=== PATIENT | male | born 1985 | race Caucasian/White ===

== ENCOUNTER 2017-11-03 20:44 | Inpatient (IN) | payer MEDICAID ==
[~2017-11-03] VITALS: Ht 180.3 cm; Wt 87.1 kg
[2017-11-03 20:51] VITALS: BP 128/86
--- NOTE | 2017-11-03 21:01 | NUR ---
BIBA BLS TO ER BED 7
--- NOTE | 2017-11-03 21:01 | NUR ---
32/M BIBA FOR INTENTIONS TO HURT HIMSELF TODAY. PT STATES " I WANT TO STICK SOMETHING IN MY PENIS". PMH: SCHIZOPHRENIA
--- NOTE | 2017-11-03 21:01 | NUR ---
BELONGINGS SENT TO SECURITY
[2017-11-03] MEDS ORDERED: LORazepam 1 MG TAB PO ONE (21:45)
--- NOTE | 2017-11-03 22:01 | NUR ---
PT MOVED TO BED 6
[2017-11-03 22:15] LABS: BASOPHILS % (AUTO) 0.4 % (0.0-2.0); EOSINOPHILS % (AUTO) 0.5 % (0.0-4.0); HEMATOCRIT 43.3 % (36-52); HEMOGLOBIN 15.1 g/dL (12.0-18.0); LYMPHOCYTES # (AUTO) 1.6 K/uL (2.0-11.5); LYMPHOCYTES % (AUTO) 17.2 % (20.5-51.1); MEAN CORPUSCULAR HEMOGLOBIN 29 pg (27-31); MEAN CORPUSCULAR HGB CONC 35 g/dL (33-37); MEAN CORPUSCULAR VOLUME 82.8 fL (80-94); MONOCYTES % (AUTO) 11.2 % (1.7-9.3); NEUTROPHILS # (AUTO) 6.4 K/uL (1.8-7.7); NEUTROPHILS % (AUTO) 70.7 % (42.2-75.2); PLATELET COUNT (AUTO) 254 K/uL (140-450); RED BLOOD CELL COUNT(AUTO) 5.22 MIL/uL (4.20-6.10); RED CELL DISTRIBUTION WIDTH 13.4 % (11.6-13.7)
[2017-11-03 22:23] LABS: BARBITURATE, URINE NEG. ng/ml (NEG <=200); BENZODIAZEPINE, URINE NEG. ng/mL (NEG <=200); CANNABINOID, URINE NEG. ng/mL (NEG <=50); COCAINE, URINE NEG. ng/mL (NEG <=300); OPIATE, URINE NEG. ng/mL (NEG <=2000); PHENCYCLIDINE SCREEN,URINE NEG. ng/mL (NEG <=25)
[2017-11-03 22:27] LABS: ANION GAP 12.4 (8-16); ASPARTATE AMINOTRANSFERASE 26 U/L (15-37); CARBON DIOXIDE 30.4 mmol/L (21-32); CHLORIDE 100 mmol/L (98-107); CREATININE 0.8 mg/dL (0.7-1.3); GFR ARICAN-AMERICAN 144 mL/min (>90); GLUCOSE 102 mg/dL (74-106); POTASSIUM 3.8 mmol/L (3.5-5.1); SODIUM SERUM 139 mmol/L (136-145); TOTAL BILIRUBIN 0.2 mg/dL (0.0-1.0); UREA NITROGEN, BLOOD 11 mg/dL (7-18)
[2017-11-03 22:28] LABS: ACETAMINOPHEN < 0.5 ug/ml (10-30); SALICYLATE < 2.8 mg/dL (2.8-20.0)
--- NOTE | 2017-11-03 23:00 | NUR ---
Patient appears to be resting comfortably in bed. Vital Signs within normal limits. Respirations even and unlabored. sitter at bedside
--- NOTE | 2017-11-04 | NUR ---
Patient appears to be resting comfortably in bed. Vital Signs within normal limits. Respirations even and unlabored. sitter at bedside
--- NOTE | 2017-11-04 01:00 | NUR ---
Patient appears to be resting comfortably in bed. Vital Signs within normal limits. Respirations even and unlabored. sitter at bedside
--- NOTE | 2017-11-04 02:00 | NUR ---
SITTER AT BEDSIDE. PT RESTING COMFORTABLY ON BED.
--- NOTE | 2017-11-04 04:24 | NUR ---
SITTER AT BEDSIDE. PT RESTING. NAD NOTED.
--- NOTE | 2017-11-04 05:46 | NUR ---
Packet Faxed to the following designated area. [facility] - [facility] intake [facility] - [facility] intake [facility] - [place] intake [place] [facility] - [place] intake [facility]- [facility] intake At this time there are no vacancy, will notify ER if placement is found, will endosed to AM shift.
--- NOTE | 2017-11-04 05:48 | NUR ---
Patient will be admitted to care of DR. EILEEN Doty. Admited to MS. Will go to room 111 A. Belongings list completed.AND GIVEN TO SECURITY DEPARTMENT.
--- NOTE | 2017-11-04 06:00 | NUR ---
Patient appears to be resting comfortably in bed. Vital Signs within normal limits. Respirations even and unlabored, WITH SITTER (EMT) AT BEDSIDE
[2017-11-04 07:00] VITALS: BP 110/73
--- NOTE | 2017-11-04 07:00 | NUR ---
PATIENT ARRIVED ON [facility] UNIT VIA WHEELCHAIR, ABLE TO AMBULATE WITH STEADY GAIT TO [facility] BED. NO DISTRESS NOTED. DENIES ANY PAIN. RESPIRATIONS EVEN, UNLABORED, ON ROOM AIR. AAOX4, CALM, COOPERATIVE, SKIN COLOR APPROPRIATE TO ETHNICITY, WARM TO TOUCH. SKIN INTACT. NO IV ACCESS PRESENT. LUNGS CTA ON ALL LOBES. ABDOMEN SOFT, NON-DISTENDED. ORIENTED PATIENT TO ROOM. REVIEWED PLAN OF CARE WITH PATIENT. PATIENT VERBALIZED UNDERSTANDING. SAFETY MEASURES IN PLACE, 1:1 SITTER AT BEDSIDE. WILL CONTINUE TO MONITOR. Addendum: 11/05/17 at 1552 by Simon Toledo RN SITTER AT BEDSIDE, NOT 1:1 SITTER
--- NOTE | 2017-11-04 09:12 | NUR ---
PATIENT HAS BEEN SCREENED AND CATEGORIZED LOW NUTRITION RISK. PATIENT WILL BE SEEN WITHIN 7 DAYS OF ADMISSION. 11/10/[address]
--- NOTE | 2017-11-04 09:30 | NUR ---
PATIENT LYING DOWN IN BED SLEEPING, AROUSABLE BY VOICE. NO DISTRESS NOTED. DENIES ANY PAIN. REPORTS HEARING AUDITORY HALLUCINATIONS THAT TELLS HIM TO SHOVE OBJECTS DOWN HIS PENIS. SAFETY MEASURES IN PLACE, 1:1 SITTER AT BEDSIDE. WILL CONTINUE TO MONITOR. Addendum: 11/05/17 at 1553 by Simon Toledo RN SITTER AT BEDSIDE, NOT 1:1 SITTER
--- NOTE | 2017-11-04 10:17 | NUR ---
[facility] IS ASSISTING WITH PLACEMENT. NO ONE HAS CONTACTED US REGARDING POSSIBLE BED OPENINGS. WE WILL CONTINUE TO MAKE CALLS TO ASSIST WITH PLACEMENT.
--- NOTE | 2017-11-04 11:14 | NUR ---
PATIENT SLEEPING, AROUSABLE BY VOICE. NO DISTRESS NOTED. CONDITION UNCHANGED. 1:1 SITTER AT BEDSIDE. WILL CONTINUE TO MONITOR. Addendum: 11/05/17 at 1553 by Simon Toledo RN SITTER AT BEDSIDE, NOT 1:1 SITTER
--- NOTE | 2017-11-04 12:00 | NUR ---
DR. DIEZ AT BEDSIDE REVIEWING PLAN OF CARE WITH PATIENT. WILL CONTINUE TO MONITOR.
--- NOTE | 2017-11-04 12:13 | NUR ---
[facility], NO BEDS AVAILABLE PER DAVID. [facility], NO BEDS AVAILABLE PER KIMBER. [facility], NO BEDS PER RL- NO WAITLIST AND THEIR ED IS SATURATED. [facility], NO ANSWER AND FAX IS NOT WORKING. [facility], NO BEDS PER RAY. NO WL AT THIS TIME. [facility], LINE BUSY, SEVERAL ATTEMPTS MADE.
[2017-11-04] MEDS ORDERED: LORazepam 2 MG/ML VIAL IM/IVP PRN (12:20)
[2017-11-04 12:48] LABS: APPEARANCE,URINE HAZY (CLEAR); BILIRUBIN,URINE NEGATIVE (NEGATIVE); BLOOD, URINE TRACE-L (NEGATIVE); COLOR,URINE YELLOW (YELLOW); LEUKOCYTE ESTERASE ,URINE TRACE (NEGATIVE); NITRITE, URINE NEGATIVE (NEGATIVE); PH,URINE 6.5 (5.0-9.0); UGLUCOSE NEGATIVE (NEGATIVE)
[2017-11-04 13:02] LABS: RBC,URINE 0-5 (RARE) /HPF (0-5)
--- NOTE | 2017-11-04 13:49 | NUR ---
1100 MET WITH PT AT BEDSIDE AND PROVIDED HIM WITH RESOURCE LIST FOR MENTAL HEALTH AND FOR HOMELESS RESOURCES. PT STATED THAT SOMETIMES HE'S HOMELESS AND SOMETIMES HE'S NOT BUT DID NOT ELABORATE WHAT HE MEANT. STATED HE'S HAD FOLLOW UP WITH PSYCH IN THE PAST BUT COULDN'T NAME WHO OR WHERE.
[2017-11-04 14:51] LABS: CHOL/HDL RATIO 3.2 (1-4.5); MAGNESIUM 1.8 mg/dL (1.8-2.4); PHOSPHORUS 3.9 mg/dL (2.5-4.9); THYROID STIMULATING HORMONE 3.62 uIU/mL (0.34-3.74)
--- NOTE | 2017-11-04 14:52 | NUR ---
MONITORED PATIENT WHILE TAKING A SHOWER. PATIENT BACK TO BED SAFELY AFTER SHOWER. CONDITION UNCHANGED. SAFETY MEASURES IN PLACE, 1:1 SITTER AT BEDSIDE. WILL CONTINUE TO MONITOR. Addendum: 11/05/17 at 1554 by Simon Toledo RN SITTER AT BEDSIDE, NOT 1:1 SITTER
[2017-11-04 16:00] VITALS: BP 108/76
--- NOTE | 2017-11-04 16:27 | NUR ---
DR. WARNER AT BEDSIDE EVALUATING PATIENT. PER DR. WARNER 8625 HOLD WILL REMAIN IN PLACE. SAFETY MEASURES IN PLACE, 1:1 SITTER AT BEDSIDE. WILL CONTINUE TO MONITOR. Addendum: 11/05/17 at 1554 by Simon Toledo RN SITTER AT BEDSIDE, NOT 1:1 SITTER
[2017-11-04] MEDS: LORazepam 1 MG TAB PO PRN (16:35)
--- NOTE | 2017-11-04 16:37 | NUR ---
PATIENT FEELING ANXIOUS, ATIVAN GIVEN PER MD ORDERS. WILL CONTINUE TO MONITOR.
--- NOTE | 2017-11-04 18:35 | NUR ---
PATIENT AWAKE, SITTING IN BED EATING DINNER TRAY. CONDITION UNCHANGED. SAFETY MEASURES IN PLACE, 1:1 SITTER AT BEDSIDE. WILL CONTINUE TO MONITOR. Addendum: 11/05/17 at 1554 by Simon Toledo RN SITTER AT BEDSIDE, NOT 1:1 SITTER
--- NOTE | 2017-11-04 19:20 | NUR ---
REPORT RECEIVED FROM AM NURSE AT BEDSIDE. PT IN STABLE CONDITION. AAOX4. BOARD UPDATED. 1:1 SITTER AT BEDSIDE. NO IV ACCESS. SKIN WARM, DRY, AND INTACT WITH NO OPEN WOUNDS. NO COMPLAINTS OF PAIN. BED LOCKED IN LOW POSITION. CALL ROMO WITHIN REACH. SAFETY MEASURES IN PLACE. WILL CONTINUE TO MONITOR.
--- NOTE | 2017-11-04 19:20 | NUR ---
GAVE REPORT TO LIBERAL ARTS DEAN NURSE FOR CONTINUITY OF CARE. PATIENT IN STABLE CONDITION.
--- NOTE | 2017-11-04 21:30 | NUR ---
PT SLEEPING COMFORTABLY WITH NO S/S OF DISTRESS. RESPIRATIONS EVEN, UNLABORED, AND WNL. NO COMPLAINTS OF PAIN STATED. WILL CONTINUE TO MONITOR.
[2017-11-05] VITALS: BP 106/58
--- NOTE | 2017-11-05 | NUR ---
PT SLEEPING COMFORTABLY WITH NO S/S OF DISTRESS. NO COMPLAINTS OF PAIN NOTED. WILL CONTINUE TO MONITOR.
--- NOTE | 2017-11-05 03:15 | NUR ---
PT SLEEPING COMFORTABLY IN BED. NO S/S OF DISTRESS. RESPIRATIONS EVEN, UNLABORED, AND WNL. NO COMPLAINTS OF PAIN NOTED. WILL CONTINUE TO MONITOR.
--- NOTE | 2017-11-05 05:10 | NUR ---
No beds available at the following facilities for psych placement: [facility], s/w Luz. [facility], s/w Julieth. [facility], s/w Philip. [facility], s/w Cameron. [facility], s/w Sayra. [facility], s/w Elle. [facility], s/w Ar.
--- NOTE | 2017-11-05 07:00 | NUR ---
REPORT GIVEN TO AM NURSE AT BEDSIDE. PT IN STABLE CONDITION.
--- NOTE | 2017-11-05 07:01 | NUR ---
RECEIVED REPORT FROM TEACHER OF GIFTED STUDENTS NURSE. PATIENT LYING DOWN IN BED SLEEPING, AROUSABLE BY VOICE. NO DISTRESS NOTED. DENIES ANY PAIN. AAOX3, CALM, COOPERATIVE, SKIN COLOR APPROPRIATE TO ETHNICITY, WARM TO TOUCH. SKIN INTACT. RESPIRATIONS EVEN, UNLABORED, ON ROOM AIR. LUNGS CTA ON ALL LOBES. ABDOMEN SOFT, NON-DISTENDED. SAFETY MEASURES IN PLACE, 1:1 SITTER AT BEDSIDE. WILL CONTINUE TO MONITOR. Addendum: 11/05/17 at 1554 by Simon Toledo RN SITTER AT BEDSIDE, NOT 1:1 SITTER
[2017-11-05 08:00] VITALS: BP 116/79
[2017-11-05] MEDS ORDERED: QUEtiapine FUMARATE 25 MG TAB PO SCH (09:00)
--- NOTE | 2017-11-05 09:07 | NUR ---
PATIENT PACING AROUND ROOM, REPORTS CONTINUING TO HEAR VOICES THAT TELL HIM TO HARM SELF. SCHEDULED MEDICATIONS DUE GIVEN. SAFETY MEASURES IN PLACE, 1:1 SITTER AT BEDSIDE. WILL CONTINUE TO MONITOR. Addendum: 11/05/17 at 1554 by Simon Toledo RN SITTER AT BEDSIDE, NOT 1:1 SITTER
--- NOTE | 2017-11-05 09:54 | NUR ---
THE [facility]IORAL [facility] CALL CENTER IS AWARE OF PATIENT AND ASSISTING WITH PLACEMENT.
--- NOTE | 2017-11-05 11:48 | NUR ---
PATIENT LYING DOWN IN BED SLEEPING, AROUSABLE BY VOICE. NO DISTRESS NOTED. DENIES ANY PAIN. CONDITION UNCHANGED. SAFETY MEASURES IN PLACE, 1:1 SITTER AT BEDSIDE. WILL CONTINUE TO MONITOR. Addendum: 11/05/17 at 1554 by Simon Toledo RN SITTER AT BEDSIDE, NOT 1:1 SITTER
[2017-11-05] MEDS ORDERED: LORA-476 PO (12:36)
[2017-11-05] MEDS ORDERED: QUET25TA PO (12:36)
--- NOTE | 2017-11-05 13:30 | NUR ---
PATIENT COMPLAINING OF "THE MEDICATION I'M TAKING IS MAKING ME HUNGRY." NOTIFIED MD AND MD TO SEE PATIENT. 1:1 SITTER AT BEDSIDE. WILL CONTINUE TO MONITOR. Addendum: 11/05/17 at 1554 by Simon Toledo RN SITTER AT BEDSIDE, NOT 1:1 ALEAH
--- NOTE | 2017-11-05 14:12 | NUR ---
PATIENT LYING DOWN IN BED SLEEPING, AROUSBLE BY VOICE. NO DISTRES NOTED. CONDITION UNCHANGED. 1:1 SITTER AT BEDSIDE. WILL CONTINUE TO MONITOR. Addendum: 11/05/17 at 1554 by Simon Toledo RN SITTER AT BEDSIDE, NOT 1:1 SITTER
--- NOTE | 2017-11-05 14:20 | NUR ---
[facility]: [facility]: NO BEDS PER SUMA [facility]: PER KEVIN RAY TO RESEND PACKET [facility]: NO BEDS PER GEMINI, SENT PACKET FOR [facility]. [facility]: NO BEDS PER AMEE.
--- NOTE | 2017-11-05 14:33 | NUR ---
[facility]: POSSIBLE BEDS PER ZEN, PACKET HAS BEEN SENT
[2017-11-05 16:00] VITALS: BP 112/64
--- NOTE | 2017-11-05 16:40 | NUR ---
PATIENT PACING AROUND IN ROOM. CONDITION UNCHANGED. SAFETY MEASURES IN PLACE, SITTER AT BEDSIDE. WILL CONTINUE TO MONITOR.
--- NOTE | 2017-11-05 18:10 | NUR ---
PATIENT AGITATED MOOD DUE TO MOVING TO ROOM 110B. REFUSES DINNER SAYING "IF I HAVE TO BE IN THIS ROOM, I'M NOT GOING TO EAT OR DRINK." SITTER AT BEDSIDE. WILL CONTINUE TO MONITOR.
--- NOTE | 2017-11-05 18:25 | NUR ---
PATIENT PACING AROUND ROOM, AGITATED MOOD D/T MOVING ROOMS. ATIVAN OFFERED, BUT PATIENT DECLINED. SAYS "I WILL NOT EAT OR DRINK ANYTHING, UNTIL I MOVE BACK TO MY ORIGINAL ROOM." WILL NOTIFY MD. SAFETY MEASURES IN PLACE, SITTER AT BEDSIDE. WILL CONTINUE TO MONITOR.
--- NOTE | 2017-11-05 19:21 | NUR ---
GAVE REPORT TO CAUSTIC STRENGTH INSPECTOR NURSE FOR CONTINUITY OF CARE. PATIENT IN STABLE CONDITION.
--- NOTE | 2017-11-05 19:22 | NUR ---
RECEIVED BEDSIDE REPORT FROM DAY SHIFT NURSE CAROLINE RN, PT STABLE, NO DISTRESS NOTED, PT HAS NO IV ACCESS, PT ON ROOM AIR, NO SOB, SITTER AT BEDSIDE, INITIAL ASSESSMENT DONE, ALL SAFETY PRECAUTION MET, WILL CONTINUE TO MONITOR.
--- NOTE | 2017-11-05 20:34 | NUR ---
ATTEMPT TO ADMINISTER MEDICATION TO PT, PT REFUSED, WOULD NOT ANSWER NURSE, STAYING ASLEEP, NO DISTRESS NOTED, SITTER AT BEDSIDE, WILL CONTINUE TO MONITOR.
[2017-11-05] MEDS: QUEtiapine FUMARATE 25 MG TAB PO SCH (20:55)
--- NOTE | 2017-11-05 23:40 | NUR ---
CHECKED ON PT, PT SLEEPING, ASKED PT IF IT IS OK FOR NURSE TO TAKE BP, PT DID NOT RESPOND AND CONTINUES TO SLEEP, NURSE WAS NOT ABLE TO GET ANY VERBAL RESPONSE FROM PT, PT SLEEPING, NO DISTRESS NOTED, LEFT RESTING, CALL LIGHT WITHIN REACH, WILL CONTINUE TO MONITOR.
--- NOTE | 2017-11-06 02:21 | NUR ---
CHECKED ON PT, PT SLEEPING, NO DISTRESS NOTED, SITTER AT BEDSIDE, WILL CONTINUE TO MONITOR.
--- NOTE | 2017-11-06 03:10 | NUR ---
No beds at the following facilities: [facility], s/w Angelo. [facility], s/w Randy. [facility], s/w Debbie. [facility], s/w Rodriguez. [facility], left a message to call me back. [place] [facility], s/w Gabrielle. [facility], s/w Su.
--- NOTE | 2017-11-06 04:59 | NUR ---
CHECKED ON PT, PT SLEEPING, NO DISTRESS NOTED, SITTER AT BEDSIDE, WILL CONTINUE TO MONITOR.
--- NOTE | 2017-11-06 07:04 | NUR ---
ENDORSED PT TO DAY SHIFT NURSE ALICIA ALEXANDER, PT IN STABLE CONDITION, NO DISTRESS NOTED. SITTER AT BEDSIDE
--- NOTE | 2017-11-06 07:04 | NUR ---
ASSUMED CONTINUITY OF CARE. NO SIGNS AND SYMPTOMS OF ACUTE DISTRESS NOTED. INITIAL ASSESSMENT DONE. CALM, QUIET AND COOPERATIVE BUT REFUSED IV INSERTION. NO SUICIDAL THOUGHTS OBSERVED. KEEP ENVIRONMENT SAFE. EXPLAINED DIAGNOSIS, PLAN OF CARE, PAIN MANAGEMENT TEACHING. VERBALIZED UNDERSTANDING. CLOSELY MONITORED 1:1 FOR SUICIDAL PREVENTION.
--- NOTE | 2017-11-06 07:27 | NUR ---
DR. ARELLANO AND RESIDENTS CAME AND SPOKE TO PT. AT BEDSIDE. PT. CALM AND COOPERATIVE.
[2017-11-06 08:00] VITALS: BP 128/76
--- NOTE | 2017-11-06 08:00 | NUR ---
Patient's Plan of Care was discussed and reviewed with BOOTH MANAGER: ALICIA, WILL CONTINUE WITH CURRENT PLAN OF CARE
--- NOTE | 2017-11-06 10:40 | NUR ---
[facility] aware patient is still in Unit. will continue to look for placement throughout shift. will contact unit when new information has been received.
--- NOTE | 2017-11-06 10:55 | NUR ---
WENT TO BATHROOM. TOLERATED WELL. NO C/O PAIN. CONTINUE MONITORING CLOSELY 1:1.
[2017-11-06 12:00] VITALS: BP 110/73
[2017-11-06] MEDS: LORazepam 1 MG TAB PO PRN (14:15)
--- NOTE | 2017-11-06 14:15 | NUR ---
ATIVAN 1MG GIVEN, BARCODE DOES NOT WORK, [id number]
--- NOTE | 2017-11-06 15:46 | NUR ---
RESTING ON BED, CALM, QUIET AND NO SUICIDAL THOUGHTS OBSERVED. KEEP FREE FROM INJURY.
--- NOTE | 2017-11-06 16:49 | NUR ---
No update from contacted facilities at this time. Called [facility] and s/w Liya, they have no beds at this time. Called [facility] and s/w Aarti they have no beds at this time and are still reviewing charts. Called [facility] and s/w Miguel, they have no beds at this time and are still reviewing charts. Called [facility] and s/w Kamala, No vacancies at this time. Called [facility] s/w Ara, No bed vacancies. [facility]w Hima, No beds available. Called [facility] and s/w Gabriel, No beds available today. Called [facility] and s/w Luisa, No bed vacancies tonight. Called [facility] and s/w Peggy, no Beds at this time. Called [facility] and s/w Stephanie, No beds available at this time. Called [facility] and s/w Anu, No vacancies at this time.
--- NOTE | 2017-11-06 19:05 | NUR ---
BEDSIDE REPORT GIVEN TO GRACIELA CASTANEDA. IN STABLE CONDITION.
--- NOTE | 2017-11-06 19:23 | NUR ---
RECEIVED BEDSIDE REPORT FROM DAY SHIFT NURSE ALICIA ALEXANDER, PT STABLE, NO DISTRESS NOTED, PT HAS NO IV ACCESS, ON ROOM AIR NO SOB, 1:1 SITTER AT BEDSIDE, INITIAL ASSESSMENT DONE, ALL SAFETY PRECAUTION MET, WILL CONTINUE TO MONITOR.
[2017-11-06] MEDS: QUEtiapine FUMARATE 25 MG TAB PO SCH (20:02)
--- NOTE | 2017-11-06 20:02 | NUR ---
DUE MEDICATION ADMINISTERED, PT TOLERATED WELL, NO DISTRESS NOTED, SITTER AT BEDSIDE, WILL CONTINUE TO MONITOR.
--- NOTE | 2017-11-06 22:10 | NUR ---
PT SLEEPING, NO DISTRESS NOTED, SITTER AT BEDSIDE, WILL CONTINUE TO MONITOR.
--- NOTE | 2017-11-06 23:26 | NUR ---
PT SLEEPING, NO DISTRESS NOTED, SITTER AT BEDSIDE, WILL CONTINUE TO MONITOR.
[2017-11-06 23:28] VITALS: BP 106/63
--- NOTE | 2017-11-07 02:08 | NUR ---
PT SLEEPING, NO DISTRESS NOTED, SITTER AT BEDSIDE, WILL CONTINUE TO MONITOR.
--- NOTE | 2017-11-07 05:05 | NUR ---
CHECKED ON PT, PT SLEEPING, NO DISTRESS NOTED, SITTER AT BEDSIDE, WILL CONTINUE TO MONITOR.
--- NOTE | 2017-11-07 07:10 | NUR ---
ASSUMED CONTINUITY OF CARE. NO SIGNS AND SYMPTOMS OF ACUTE DISTRESS NOTICED. REFUSED IV INSERTION. CALM, QUIET, AND COOPERATIVE. NO SUICIDAL THOUGHTS OBSERVED. KEEP SURROUNDINGS SAFE. CLOSELY MONITORED BY AXEL BULLARD 1:1 FOR SUICIDAL PREVENTION.
--- NOTE | 2017-11-07 07:12 | NUR ---
ENDORSED PT TO DAY SHIFT NURSE ALICIA ALEXANDER, PT STABLE, NO DISTRESS NOTED, SITTER AT BEDSIDE
[2017-11-07 08:00] VITALS: BP 139/85
--- NOTE | 2017-11-07 08:00 | NUR ---
Patient's Plan of Care was discussed and reviewed with NETWORKING ADMINISTRATOR: ALICIA, WILL CONTINUE WITH CURRENT PLAN OF CARE.
[2017-11-07 12:00] VITALS: BP 125/78
--- NOTE | 2017-11-07 12:00 | NUR ---
VITALS SIGNS STABLE. NO C/O PAIN. WILL MONITOR.
--- NOTE | 2017-11-07 15:25 | NUR ---
No update from contacted facilities at this time. Refaxed paperwork over to [facility] Called [facility] and s/w Obdulia, they have no beds at this time. Called [facility] and s/w Dario they have no beds at this time and are still reviewing charts. Called [facility] and s/w Savanah, they have no beds at this time and are still reviewing charts. Called [facility] and s/w Ade, No vacancies at this time. Called [facility] s/w Andressa, No bed vacancies. Called [facility] left message, No answer Called [facility] and s/w Gabriel, No beds available today. Called [facility] and s/w Patti, No bed vacancies tonight. Called [facility] and s/w Val, no Beds at this time. Called [facility] and s/w Phu, No beds available at this time. Called [facility] and s/w Alban, No vacancies at this time.
--- NOTE | 2017-11-07 15:26 | NUR ---
INFORMED DR. PUTON WHO WAS COVERING DR. MALLORY REGARDING PT. PSYCH RE-EVAL FOR 5150 HOLD RENEWAL.
--- NOTE | 2017-11-07 16:35 | NUR ---
DR. BENAVIDES CAME AND SPOKE TO PT. AT BEDSIDE REGARDING PSYCH RE-EVAL. PT. CALM AND COOPERATIVE.
--- NOTE | 2017-11-07 19:15 | NUR ---
BEDSIDE REPORT GIVEN TO MARILIN GAMA. PT. CALM AND QUIET RESTING ON BED. IN STABLE CONDITION.
--- NOTE | 2017-11-07 19:16 | NUR ---
RECD. RESTING IN BED, AWAKE, A/OX4. RESPIRATION EVEN AND UNLABORED. NO IV LINE, REFUSED IV INSERTION. DENIES HEARING VOICES BUT WHEN ASKED IF HE STILL HAS THOUGHTS OF HURTING HIMSELF. STATED "YES". PLAN OF CARE FOR THE SHIFT DISCUSSED. VERBALIZED UNDERSTANDING. DENIES PAIN 0/10. WILL CONTINUE TO MONITOR FOR SAFETY AND ANY SUICIDAL BEHAVIOR BEING THE NURSE/SITTER FOR THIS SHIFT.
--- NOTE | 2017-11-07 20:05 | NUR ---
REQUESTED FOR WATER WITH ICE. DRINKS AND THEN KEEP ON EATING ICE CHIPS.
[2017-11-07] MEDS: QUEtiapine FUMARATE 25 MG TAB PO SCH (21:01)
--- NOTE | 2017-11-07 21:05 | NUR ---
DUE PO MEDICATION FOR THE NIGHT GIVEN. COOPERATIVE.
[2017-11-08] VITALS: BP 105/65
--- NOTE | 2017-11-08 | NUR ---
SLEEPING COMFORTABLY IN BED.
--- NOTE | 2017-11-08 05:33 | NUR ---
STILL SLEEPING COMFORTABLY IN BED, WITH HEAD COVERED WITH TOWEL AND BOTH EARS.EARPLUGS AT THE BEDSIDE TABLE.
--- NOTE | 2017-11-08 06:35 | NUR ---
ABLE TO SLEEP WELL. NO SUICIDAL BEHAVIOR NOTED DURING SHIFT. CONDITION REMAIN STABLE. WILL ENDORSE TO AM NURSE FOR CONTINUITY OF CARE.
--- NOTE | 2017-11-08 07:10 | NUR ---
ENDORSED TO COTY THOMAS FOR CONTINUITY OF CARE.
--- NOTE | 2017-11-08 07:25 | NUR ---
RECEIVED BEDSIDE REPORT FROM WELDING MACHINE OPERATOR ARC NURSE MARILIN FOR CONTINUITY OF CARE. NO SIGNS AND SYMPTOMS OF ACUTE DISTRESS NOTICED. RESPIRATIONS EVEN AND UNLABORED. PT REFUSED IV INSERTION SO THUS NO IV ACCESS. PT SLEEPING IN BED, AROUSABLE BY VOICE. ROOM HAS BEEN CHECKED TO BE FREE OF POSSIBLE HARMFUL OBJECTS. CLOSELY MONITORED BY MYSELF SITTER 1:1 FOR SUICIDAL PREVENTION.
--- NOTE | 2017-11-08 07:45 | NUR ---
SET UP PATIENT'S BREAKFAST TRAY PER PT REQUEST. PT STATES HE DID NOT RECEIVE EVERYTHING HE ORDERED FOR BREAKFAST. CALLED [facility] PER PATIENT REQUEST. LEFT MESSAGE.
[2017-11-08 08:00] VITALS: BP 126/88
--- NOTE | 2017-11-08 09:30 | NUR ---
PATIENT DENIES HEARING VOICES BUT STATES CONSTANT DESIRE TO HARM HIMSELF. STATES THAT HE DOES NOT THINK THE "FEELING TO HARM MYSELF WILL EVER GO AWAY", BUT DOES NOT VOCALIZE SPECIFIC PLAN AT THIS TIME. PT CONVERSING APPROPRIATELY WITH ME AT THIS TIME. WILL CONTINUE TO CLOSELY MONITOR PATIENT.
--- NOTE | 2017-11-08 10:34 | NUR ---
NURSING SCHOOL STUDENT WHO IS ASSIGNED TO PATIENT TODAY IN ROOM TO SPEAK WITH PATIENT. PATIENT INTERACTING APPROPRIATELY WITH STUDENT. MOOD IS CALM AND COOPERATIVE. WILL CONTINUE TO MONITOR.
--- NOTE | 2017-11-08 11:59 | NUR ---
PT INQUIRING ABOUT LUNCH. INFORMED PATIENT THAT LUNCH WILL BE BROUGHT TO THE UNIT AROUND 12 NOON.
--- NOTE | 2017-11-08 12:45 | NUR ---
[facility] called saying they are reviewing the patients chart. will update when new information has been revealed. no update from any other contacted facility at this time.
--- NOTE | 2017-11-08 13:50 | NUR ---
PATIENT SHOWERED SELF. PATIENT WAS MONITORED THROUGHOUT. NOW BACK IN ROOM AND LYING IN BED. WILL CONTINUE TO MONITOR.
--- NOTE | 2017-11-08 14:24 | NUR ---
PT RESTING IN BED, AO X 4. NO COMPLAINTS OF PAIN OR DISCOMFORT. ALL SAFETY PRECAUTIONS IN PLACE, WILL CONTINUE TO MONITOR.
[2017-11-08] MEDS: LORazepam 1 MG TAB PO PRN (15:49)
--- NOTE | 2017-11-08 15:50 | NUR ---
ATIVAN PO ADMINISTERED FOR PATIENT REPORTS OF ANXIETY. PATIENT SEEN TO BE RESTLESS IN BED. WILL CONTINUE TO MONITOR.
[2017-11-08 16:00] VITALS: BP 115/70
--- NOTE | 2017-11-08 16:49 | NUR ---
PATIENT RESTING COMFORTABLY IN BED ONE HOUR AFTER ATIVAN PO ADMINISTRATION. NO RESTLESS SEEN. PT STATES ANXIETY IS LESSENED. WILL CONTINUE TO MONITOR.
--- NOTE | 2017-11-08 18:59 | NUR ---
No updates and No bed vacancies from contacted hospitals during shifts. will endorse to overnight caregiver to continue looking for placement.
--- NOTE | 2017-11-08 19:19 | NUR ---
ENDORSED PLAN OF CARE TO HOSIERY MENDER NURSE MARILIN AT BEDSIDE. PT IN STABLE CONDITION.
--- NOTE | 2017-11-08 19:20 | NUR ---
RECD. RESTING IN BED, AWAKE, A/OX4. RESPIRATION EVEN AND UNLABORED. WEARING MASK, STATED OTHER PATIENT STINKS BUT KNOWS REFUSING TO HAVE A BATH. WHEN INQUIRED IF HE IS HEARING VOICES, STATED NO BUT STILL WITH THOUGHTS OF HURTING HIMSELF. PLAN OF CARE FOR THE SHIFT DISCUSSED. VERBALIZED UNDERSTANDING. DENIES PAIN 0/10. WILL CONTINUE TO MONITOR AND ENSURE SAFETY BEING THE NURSE/SITTER FOR THIS SHIFT.
--- NOTE | 2017-11-08 20:00 | NUR ---
SLEEPING IN BED, NO MORE MASK.
[2017-11-08] MEDS: QUEtiapine FUMARATE 25 MG TAB PO SCH (21:09)
--- NOTE | 2017-11-08 21:09 | NUR ---
WAKEN UP, DUE PO NIGHT MEDICATION GIVEN.
[2017-11-09] VITALS: BP 106/72
--- NOTE | 2017-11-09 | NUR ---
SLEEPING COMFORTABLY IN BED.
--- NOTE | 2017-11-09 03:00 | NUR ---
WOKE UP AND WENT TO BR TO VOID, BACK TO BED AND SLEEP AGAIN.
--- NOTE | 2017-11-09 06:30 | NUR ---
STILL VERY SLEEPY, WHEN INQUIRED WHEN WAS HIS LAST BM, JUST TURNED BODY AWAY TO THE SIDE AND DID NOT ANSWER.
--- NOTE | 2017-11-09 07:05 | NUR ---
STILL SLEEPING IN BED. SAFETY MAINTAINED DURING SHIFT. ENDORSED TO COTY THOMAS FOR CONTINUITY OF CARE.
--- NOTE | 2017-11-09 07:25 | NUR ---
RECEIVED BEDSIDE REPORT FROM CHECKING DEPARTMENT SUPERVISOR NURSE MARILIN. PT SLEEPING IN BED, WITH BLANKET COVERING EYES. DOES NOT WANT TO INTERACT AT THIS TIME. HOWEVER DOES STATE THAT HE IS HEARING VOICES BUT THAT THEY ARE NOT GETTING WORSE. STATES THAT HE DOES HAVE THOUGHTS OF HURTING HIMSELF, BUT DOES NOT OFFER SPECIFIC PLAN/DETAILS. NO SIGNS AND SYMPTOMS OF ACUTE DISTRESS NOTICED. RESPIRATIONS EVEN AND UNLABORED. PT REFUSED IV INSERTION SO THUS NO IV ACCESS. ROOM HAS BEEN CHECKED TO BE FREE OF POSSIBLE HARMFUL OBJECTS. CLOSELY MONITORED BY MYSELF SITTER 1:1 FOR SUICIDAL PREVENTION. Addendum: 11/09/17 at 0752 by Kamala Jacobo Meng, RN STATES HE DID NOT SLEEP WELL LAST NIGHT.
[2017-11-09 08:00] VITALS: BP 96/55
--- NOTE | 2017-11-09 08:07 | NUR ---
PATIENT REFUSING BREAKFAST AT THIS TIME; STATES HE HAS NO APPETITE. STILL SLEEPING WITH BLANKET COVERING EYES. REFUSING VITALS AT THIS TIME WELL. WILL ATTEMPT TO OBTAIN VITAL SIGNS AT LATER TIME WHEN PATIENT IS MORE AWAKE.
[2017-11-09] MEDS ORDERED: OLANZapine 5 MG TAB PO SCH (09:00)
--- NOTE | 2017-11-09 09:14 | NUR ---
PATIENT CONTINUES TO REFUSE TO EAT. PT DID LET CANDLE WRAPPER TAKE VITALS. PATIENT ALSO REFUSES 0900 ZYPREXA. SAYS HE IS GOING ON "HUNGER STRIKE". WHEN ASKED WHAT PATIENT IS UNHAPPY ABOUT IN HIS CARE HERE, HE STATES HE IS ANGRY AT THE [facility] FOR NOT BRINGING HIM THE FOOD HE ORDERS. STATES THAT "I KNOW THE [facility] HAD THE CREAM CHEESE I ORDERED YESTERDAY BUT THEY WERE JUST TOO LAZY TO BRING IT TO ME". EXPLAINED THAT THE MENU PT FILLS OUT TODAY IS FOR THE FOOD TO BE DELIVERED TOMORROW. PATIENT SAYS "I KNOW WHAT I ORDERED". PT DENIES DISSATISFACTION WITH OTHER AREAS OF CARE HERE.
--- NOTE | 2017-11-09 09:19 | NUR ---
OFFERED TO CALL THE [facility] AT THIS TIME TO CONFIRM PATIENT'S LUNCH TRAY CHOICES. HOWEVER PATIENT REFUSED. Addendum: 11/09/17 at 0946 by Kamala Jacoob Meng RN PATIENT IS NOW UNHAPPY THAT HE DOES NOT HAVE A CHAIR IN HIS ROOM. EXPLAINED TO PATIENT THAT [address] HOLD ROOMS CAN NOT HAVE CHAIR INSIDE ROOM.
--- NOTE | 2017-11-09 09:28 | NUR ---
CHARGE NURSE DAO SPOKE WITH PATIENT REGARDING NOT HAVING A CHAIR IN THE ROOM. HYDROELECTRIC PLANT ELECTRICAL ENGINEER EXPLAINED TO PATIENT THAT IT IS HOSPITAL POLICY TO LEAVE CHAIRS OUT OF THE ROOM WHEN PT IS ON 5150.
--- NOTE | 2017-11-09 09:32 | NUR ---
PATIENT THROWING AWAY EVERYTHING ON BEDSIDE TABLE, INCLUDING BREAKFAST AND EARPLUGS. PT ALSO TOOK OFF IDENTIFICATION WRISTBAND AND THREW THAT IN TRASH. CALLED ADMITTING FOR ANOTHER PT WRISTBAND.
--- NOTE | 2017-11-09 09:38 | NUR ---
PATIENT MOVED TO ROOM 109B. WAS COOPERATIVE DURING MOVE. PT LAID ON FLOOR IN NEW ROOM, REFUSING TO LAY DOWN IN BED. SAYS HE WILL CONTINUE TO LAY ON THE FLOOR AND REFUSE MEDICATIONS AND FOOD UNTIL HE GETS HIS CHAIR.
--- NOTE | 2017-11-09 10:03 | NUR ---
PATIENT NOW DEMANDING WINDOWS THAT ALLOW HIM TO SEE OUTSIDE, A TV, AND A CHAIR. PT SEEN SHAKING HIS LEG/RESTLESS WHILE LYING ON FLOOR. OFFERED ATIVAN TO PATIENT BUT HE SAYS "I'M NOT GONNA EAT OR DRINK TODAY UNTIL YOU GUYS TREAT US LIKE PEOPLE". Addendum: 11/09/17 at 1009 by Kamala Jacobo Meng, RN PATIENT HAS NOT BEEN COOPERATIVE THE WHOLE MORNING BUT HAS NOT DISPLAYED ANY AGGRESSION/COMBATIVENESS.
--- NOTE | 2017-11-09 10:17 | NUR ---
PATIENT DEMANDING TO SPEAK WITH DOCTOR. WILL NOT REVEAL SPECIFIC QUESTIONS/CONCERNS. DR. DIEZ HAS BEEN NOTIFIED.
--- NOTE | 2017-11-09 11:00 | NUR ---
PER DIRECTOR OF VIDEO ANALYTICS ZEN WHO HAS BEEN TEMPORARILY ACTING SITTER, DR. DIEZ CAME BY TO SPEAK WITH PATIENT. PT INFORMED THAT PSYCH WILL COME BY THIS AFTERNOON TO EVALUATE IF PATIENT WANTS TO LEAVE THE HOSPITAL. PT VERBALIZED UNDERSTANDING.
--- NOTE | 2017-11-09 11:16 | NUR ---
PATIENT ASKED FOR COFFEE AND IT WAS PROVIDED TO HIM.
--- NOTE | 2017-11-09 12:50 | NUR ---
PER DOTTIE ANSARI, WHO WAS ACTING 1:1 SITTER DURING MY LUNCH BREAK, PATIENT BECAME AGITATED BECAUSE THE LUNCH TRAY DID NOT CONTAIN WHAT HE ORDERED. PATIENT ENTERED THE HALLWAYS AND WAS SPEAKING AGGRESSIVELY. SECURITY WAS CALLED AND POLICE WAS CALLED. PATIENT IS NOW PACING IN ROOM. WILL CONTINUE TO MONITOR WHILE WAITING FOR POLICE.
--- NOTE | 2017-11-09 13:40 | NUR ---
POLICE HERE TO SPEAK WITH PATIENT. PATIENT IS CALM AND COOPERATIVE AT THIS TIME. PATIENT IS AGREEABLE TO STAYING ON THE UNIT UNTIL PSYCH PLACEMENT HAS BEEN SECURED.
--- NOTE | 2017-11-09 14:19 | NUR ---
11/09/17 RD INITIAL ASSESSMENT COMPLETED PLEASE REFER TO NUTRITION ASSESSMENT UNDER CARE ACTIVITY FOR ESTIMATED NUTRITIONAL NEEDS. 1. CONTINUE REGULAR DIET TOLERATED 2. RD TO FOLLOW-UP 5-7 DAYS, LOW RISK ALESSANDRA GARCIA RD
--- NOTE | 2017-11-09 15:13 | NUR ---
PATIENT IS NOW RESTING IN BED. PT BROUGHT HIS BLANKETS AND SHEETS FROM THE GROUND BACK ONTO THE BED. CONVERSING APPROPRIATELY WITH ME.
[2017-11-09 16:00] VITALS: BP 111/74
--- NOTE | 2017-11-09 16:02 | NUR ---
PSYCHOLOGIST IN ROOM TO SPEAK WITH PATIENT.
[2017-11-09] MEDS ORDERED: OLAN5TAB1 PO (16:33)
[2017-11-09] MEDS ORDERED: QUET50TA PO (16:33)
--- NOTE | 2017-11-09 16:35 | NUR ---
DR. DIEZ IN ROOM AND INFORMED PATIENT HE WILL BE DISCHARGED TODAY AND BE GIVEN A BUS PASS. Addendum: 11/09/17 at 1822 by Kamala Jacobo Meng, RN PT NO LONGER QUALIFIES FOR 5150 HOLD.
--- NOTE | 2017-11-09 17:30 | NUR ---
PROCESS SAFETY MANAGER SUDHIR HERE TO GIVE BUS PASS TO PATIENT. SECURITY PAGED TO BRING PATIENT BELONGINGS.
--- NOTE | 2017-11-09 17:55 | NUR ---
DISCHARGE PAPERWORK, INCLUDING INSTRUCTIONS TO FOLLOW UP WITH PSYCHIATRIST AND PCP AND NEW PRESCRIPTIONS, GIVEN TO PATIENT. MEDICATION RECONCILIATION TEACHING GIVEN. PATIENT VERBALIZED COMPLETE UNDERSTANDING OF ALL DISCHARGE TEACHING. ID BANDS REMOVED. PATIENT IS COMPLETELY DRESSED. SECURITY HAS HANDED PERSONAL BELONGINGS TO PATIENT. PATIENT LEFT UNIT WITH BUS PASS. Addendum: 11/09/17 at 1823 by Kamala Jacobo Meng, RN PATIENT WILL GO TO SISTER[facility].
== END 2017-11-09 17:55 | disposition home or self-care (01) | DRG 750 ==
LOC: MED 20:44 → MTU 11-04 05:48
PROVIDERS: ADMIT General Practice; ATTEND General Practice
DX: F20.0 Paranoid schizophrenia (principal); F33.2 Major depressive disorder, recurrent severe without psychotic features; R45.851 Suicidal ideations; Z59.0 Homelessness; Z91.14 Patient's other noncompliance with medication regimen; F12.90 Cannabis use, unspecified, uncomplicated; F31.9 Bipolar disorder, unspecified; F90.9 Attention-deficit hyperactivity disorder, unspecified type; F41.0 Panic disorder [episodic paroxysmal anxiety]; F41.1 Generalized anxiety disorder; F43.10 Post-traumatic stress disorder, unspecified; Z91.013 Allergy to seafood; Z91.018 Allergy to other foods; Z56.0 Unemployment, unspecified; Z79.899 Other long term (current) drug therapy
CPT/HCPCS: 36415; 80053; 80305; 81001; 82150; 83036; 83690; 83735; 83880; 84100; 84134; 84443; 85025; 87081; 87086; 93005; 99285; G0480; G0482